=== PATIENT | female | born 2000 | race African-American/Black ===

== ENCOUNTER 2018-02-18 18:09 | Emergency (ER) | payer OTHER, SELFPAY | END 2018-02-18 18:38 | disposition home or self-care (01) | LOC: ERS 18:09 | DX: T63.461A Toxic effect of venom of wasps, accidental (unintentional), initial encounter (principal); F17.210 Nicotine dependence, cigarettes, uncomplicated | CPT/HCPCS: 99283 ==

== ENCOUNTER 2018-05-27 19:08 | Emergency (ER) | payer SELFPAY ==
[2018-05-27 20:38] LABS: Pregnancy Test - Urine (BHCG) Negative (Negative); Pregu Control Background? CLEAR/WHITE (CLR/WHITE); Pregu Control Bar Appear? YES (CONTROL BAR); Specific Gravity 1.013 (1.002-1.036)
[2018-05-27] MEDS ORDERED: Ketorolac Tromethamine 30 MG/ML VIAL ONE (21:00)
[2018-05-27] MEDS ORDERED: Acetaminophen 325 MG TAB ONE (21:00)
[2018-05-27] MEDS ORDERED: traMADol HCl 50 MG TAB ONE (21:00)
== END 2018-05-27 21:38 | disposition home or self-care (01) ==
LOC: ERS 19:08
DX: K02.9 Dental caries, unspecified (principal); F17.210 Nicotine dependence, cigarettes, uncomplicated
CPT/HCPCS: 81025; 99283; J1885

== ENCOUNTER 2019-07-24 13:52 | Emergency (ER) | payer SELFPAY ==
[2019-07-24 14:17] LABS: Pregnancy Test - Urine (BHCG) POSITIVE (Negative); Pregu Control Background? CLEAR/WHITE (CLR/WHITE); Pregu Control Bar Appear? YES (CONTROL BAR); Specific Gravity 1.013 (1.002-1.036)
[2019-07-24 14:29] LABS: Clarity Clear (Clear); Leukocyte 500 Leu/uL (Negative); Nitrite Negative (Negative)
[2019-07-24 14:30] LABS: Bacteria/HPF 1+ HPF (None Seen); Bilirubin Negative (Negative); Blood, Urine Trace (Negative); Glucose, Urine (Dipstick) Normal (Negative); Protein, Urine (Dipstick) Negative (Neg-Trace); RBC/HPF 0-3 HPF (0-3); Urobilinogen Normal mg/dL (Less than 2)
[2019-07-24 14:44] LABS: #Lymphocytes 1.2 thou/uL (1.20-3.40); #Monocytes 0.8 thou/uL (0.11-0.59); #Neutrophils 4.8 thou/uL (1.40-6.50); %Basophils 0.1 % (0.0-1.0); %Eosinophils 0.6 % (0.0-10.0); %Lymphocytes 16.8 % (21.0-51.0); %Neutrophils 70.5 % (42.0-75.0); Hemoglobin 11.1 g/dL (12.0-16.0); Mean Corpuscular HGB CONC 32.6 g/dL (32.0-36.0); Mean Corpuscular Hemoglobin 21.7 pg (27.0-31.0); Mean Corpuscular Volume 66.7 fL (78.0-98.0); Mean Platelet Volume 11.2 fL (7.4-10.4); Platelet Count 351 thou/uL (130-400); RBC Distribution Width 17.8 % (11.5-14.5); Red Blood Cell (RBC) Count 5.11 mill/uL (4.20-5.40); White Blood Cell (WBC) Count 6.9 thou/uL (4.8-10.8)
[2019-07-24 14:59] LABS: Large Platelets SLIGHT; MDiff Complete? YES; Microcytosis MODERATE=15-30 cells (100X) (0-5/hpf); Platelet Morphology Comment Appears Adequate; Polychromasia SLIGHT = 2-3 cells (100X) (0-2/hpf); Schistocytes SLIGHT = 2-5 cells (100X) (0-1/hpf); Target Cells MODERATE= 6-15 cells (100X) (0-1/hpf); Tear Drops SLIGHT = 2-5 cells (100X) (0-1/hpf)
== END 2019-07-24 15:28 | disposition home or self-care (01) ==
LOC: ERS 13:52
DX: O03.4 Incomplete spontaneous abortion without complication (principal)
CPT/HCPCS: 36415; 81003; 81015; 81025; 84702; 85025

== ENCOUNTER 2023-07-28 18:06 | Emergency (ER) | payer OTHER ==
[2023-07-28] MEDS ORDERED: LORazepam 2 MG/ML SYR.(CARPUJECT) ONE (18:48)
[2023-07-28 19:14] LABS: #Monocytes 1.5 thou/uL (0.11-0.59); #Neutrophils 11.9 thou/uL (1.40-6.50); %Basophils 0.2 % (0.0-1.0); %Lymphocytes 12.5 % (21.0-51.0); %Monocytes 9.7 % (0.0-10.0); %Neutrophils 77.1 % (42.0-75.0); Hematocrit 38.9 % (36.0-47.0); Hemoglobin 13.8 g/dL (12.0-16.0); Mean Corpuscular HGB CONC 35.5 g/dL (32.0-36.0); Mean Corpuscular Volume 73.4 fl (78.0-98.0); Mean Platelet Volume 10.6 fL (7.4-10.4); Platelet Count 457 10x3/uL (130-400); White Blood Cell (WBC) Count 15.4 10x3/uL (4.8-10.8)
[2023-07-28 19:23] LABS: Actual Bicarbonate (HCO3v) 21.9 mEq/L (22-28); Base Excess -2.6 mEq/L (-2.0 to +3.0); Calcium, Ionized (venous) 1.08 mmol/L (1.16-1.32); Chloride (VBG) 99 mmol/L (98-106); Hematocrit-VBG 43 % (36.0-47.0); Hemoglobin (Hb) 14.5 g/dL (11.7-15.5); Potassium (VBG) 3.73 mmol/L (3.70-5.30); Sodium 138 mmol/L (133-146); pH (venous) 7.387 (7.32-7.43)
[2023-07-28 19:36] LABS: ALT (SGPT) 15 U/L (8-55); AST (SGOT) 22 U/L (5-34); Albumin 4.5 g/dL (3.5-5.0); Alkaline Phosphatase 65 U/L (40-110); Anion Gap 22 mmol/L (10-20); BUN (Urea Nitrogen) 9 mg/dL (7.0-18.7); Bilirubin, Total 0.5 mg/dL (0.2-1.2); Calc. Creatinine Clearance 0 mL/min (70-130); Calcium 9.4 mg/dL (7.8-10.44); Carbon Dioxide 19 mmol/L (22-29); CellaVision Operator ID LAB.MJL; Chloride 101 mmol/L (98-107); Estimated GFR 102; Glucose 75 mg/dL (70-105); Hypochromia SLIGHT = 6-15 cells HPF (0-5); Magnesium 1.8 mg/dL (1.6-2.6); Microcytosis SLIGHT = 6-15 cells HPF (0-5); Platelet Adequacy Comment Platelets Increased; Polychromasia SLIGHT = 2-3 cells HPF (0-2); Protein, Total 8.5 g/dL (6.0-8.3); Sodium 138 mmol/L (136-145); Target Cells SLIGHT = 2-5 cells HPF (0-1)
== END 2023-07-28 20:21 | disposition home or self-care (01) ==
LOC: ERS 18:06
DX: M62.838 Other muscle spasm (principal); F17.210 Nicotine dependence, cigarettes, uncomplicated
CPT/HCPCS: 36415; 80053; 82805; 83735; 85025; 96374; J2060

== ENCOUNTER 2023-09-28 13:21 | Emergency (ER) | payer OTHER | END 2023-09-28 14:44 | disposition left against medical advice (07) | LOC: ERS 13:21 | DX: Z53.21 Procedure and treatment not carried out due to patient leaving prior to being seen by health care provider (principal) ==